=== PATIENT | female | born 1990 | race Caucasian/White ===

== ENCOUNTER 2017-03-12 20:55 | Emergency (ER) | payer OTHER ==
[~2017-03-12] VITALS: Ht 162.6 cm; Wt 75.6 kg
[2017-03-12] MEDS ORDERED: WELL100T2 PO (21:17)
[2017-03-12] MEDS ORDERED: VARE1TA PO (21:17)
[2017-03-12] MEDS ORDERED: IBUPROFEN 800 MG TAB PO ONE (22:15)
[2017-03-12] MEDS ORDERED: CEPHALEXIN 500 MG CAP PO ONE (22:15)
[2017-03-12] MEDS ORDERED: TETANUS/DIPHTHERIA TOX ADSORB ADULT 0.5ML SYR/VIAL (90714) IM ONE (22:15)
[2017-03-12] MEDS ORDERED: DERMABOND TOPICAL SKIN ADHESIVE TOP ONE (22:15)
[2017-03-12] MEDS ORDERED: KEFL500C7 PO (22:25)
[2017-03-12] MEDS ORDERED: IBUP80TA PO (22:25)
[2017-03-12 22:35] VITALS: BP 124/69
== END 2017-03-12 22:53 | disposition home or self-care (01) ==
LOC: M ED 21:45
DX: S61.012A Laceration without foreign body of left thumb without damage to nail, initial encounter (principal); W26.0XXA Contact with knife, initial encounter; Y92.019 Unspecified place in single-family (private) house as the place of occurrence of the external cause; Y93.89 Activity, other specified; Y99.9 Unspecified external cause status; G89.11 Acute pain due to trauma; Z87.891 Personal history of nicotine dependence